=== PATIENT | female | born 1995 | race Caucasian/White ===

== ENCOUNTER 2023-02-22 12:33 | Day surgery (SDC) | payer BC, OTHER ==
[~2023-02-22] VITALS: Ht 162.6 cm; Wt 62.6 kg
[~2023-02-22 12:33] MED LIST: ACET-907 PO; MYLA1SUS PO; NS 1,000 ML IV ONE; PANT20TA6 PO; SERT50TA29 PO
[2023-02-22] MEDS ORDERED: fentaNYL 100 MCG/2 ML INJECTION As Ordered ONE (15:01)
[2023-02-22] MEDS ORDERED: LIDOCAINE 2% 100MG/5ML SDV (FOR ANES.) As Ordered ONE (15:06)
[2023-02-22] MEDS ORDERED: propofoL 200 MG/20 ML VIAL As Ordered ONE (15:06)
[2023-02-22 15:21] VITALS: TEMP 98.2
[2023-02-22 15:40] VITALS: BP 118/84; O2SAT 100
== END 2023-02-22 16:00 | disposition home or self-care (01) ==
LOC: M OPP 12:33
PROVIDERS: ATTEND Internal Medicine Gastroenterology
DX: K31.A19 Gastric intestinal metaplasia without dysplasia, unspecified site (principal); K21.9 Gastro-esophageal reflux disease without esophagitis; G43.909 Migraine, unspecified, not intractable, without status migrainosus; Z88.0 Allergy status to penicillin; Z79.899 Other long term (current) drug therapy
CPT/HCPCS: 43239; 88305; J3010